=== PATIENT | male | born 1990 | race African-American/Black ===

== ENCOUNTER 2016-07-13 15:38 | Emergency (ER) | payer SELFPAY ==
[~2016-07-13] VITALS: Ht 177.8 cm; Wt 90.7 kg
[2016-07-13 16:04] VITALS: BP 128/62
== END 2016-07-13 16:24 | disposition home or self-care (01) ==
LOC: ER 15:48
DX: K01.1 Impacted teeth (principal)

== ENCOUNTER 2016-07-22 18:58 | Emergency (ER) | payer SELFPAY ==
[~2016-07-22] VITALS: Ht 177.8 cm; Wt 117.0 kg
[2016-07-22 19:29] VITALS: BP 128/79
== END 2016-07-22 22:28 | disposition left against medical advice (07) ==
LOC: ER 19:00
DX: S80.862A Insect bite (nonvenomous), left lower leg, initial encounter (principal); Z53.21 Procedure and treatment not carried out due to patient leaving prior to being seen by health care provider; W57.XXXA Bitten or stung by nonvenomous insect and other nonvenomous arthropods, initial encounter; Y93.89 Activity, other specified; Y99.8 Other external cause status; Y92.89 Other specified places as the place of occurrence of the external cause

== ENCOUNTER 2018-01-20 16:33 | Emergency (ER) | payer MEDICAID ==
[~2018-01-20] VITALS: Ht 180.3 cm; Wt 97.5 kg
[2018-01-20] MEDS: HYDROmorphone HCL 2 MG/ML VL IV ONE ×2 (19:08→21:14)
[2018-01-20] MEDS: ONDANSETRON HCL 4 MG/2 ML VIAL IV ONE (19:08)
[2018-01-20] MEDS: cefTRIAXone 1GM/50ML D5W 50 ML IV ONE (19:38)
[2018-01-20] MEDS: CLINDAMYCIN 600MG IV 50 ML IV ONE (20:12)
[2018-01-20] MEDS: TETANUS-DIPTH-ACEL PERTUSSIS 0.5ML SYRG IM ONE (21:12)
[2018-01-20 21:25] VITALS: BP 133/71
== END 2018-01-20 21:45 | disposition short-term general hospital (02) ==
LOC: ER 16:33 → EDBD 16:33 → ER 21:45
DX: S92.331A Displaced fracture of third metatarsal bone, right foot, initial encounter for closed fracture (principal); S92.341A Displaced fracture of fourth metatarsal bone, right foot, initial encounter for closed fracture; S92.321A Displaced fracture of second metatarsal bone, right foot, initial encounter for closed fracture; S92.351A Displaced fracture of fifth metatarsal bone, right foot, initial encounter for closed fracture; S91.311A Laceration without foreign body, right foot, initial encounter; V86.56XA Driver of dirt bike or motor/cross bike injured in nontraffic accident, initial encounter; Y93.89 Activity, other specified; Y99.8 Other external cause status; Y92.89 Other specified places as the place of occurrence of the external cause
CPT/HCPCS: 29515; 73610; 73630; 90471; 90715; 96365; 96367; 96375; 96376; 99285; J0696; J1170; J2405; J3490

== ENCOUNTER 2018-02-06 17:48 | Emergency (ER) | payer MEDICAID ==
[~2018-02-06] VITALS: Ht 180.3 cm; Wt 97.5 kg
[2018-02-06 18:48] VITALS: BP 137/91
== END 2018-02-07 04:38 | disposition left against medical advice (07) ==
LOC: ER 17:48
DX: M79.671 Pain in right foot (principal); Z53.21 Procedure and treatment not carried out due to patient leaving prior to being seen by health care provider
CPT/HCPCS: 93971

== ENCOUNTER 2018-12-06 12:07 | Emergency (ER) | payer SELFPAY ==
[~2018-12-06] VITALS: Ht 177.8 cm; Wt 99.8 kg
[2018-12-06 14:05] VITALS: BP 123/77
== END 2018-12-06 15:33 | disposition home or self-care (01) ==
LOC: ER 12:26
DX: M79.671 Pain in right foot (principal); Z87.81 Personal history of (healed) traumatic fracture